=== PATIENT | female | born 1995 | race Caucasian/White ===

== ENCOUNTER 2020-07-21 15:30 | Emergency (ER) | payer BC ==
[2020-07-21] MEDS ORDERED: DIPHENHYDRAMINE 25 MG TAB/CAP ONE (16:05)
[2020-07-21] MEDS ORDERED: METHYLPREDNISOLONE 125 MG INJ ONE (16:05)
[2020-07-21] MEDS ORDERED: FAMOTIDINE 20 MG TAB ONE (16:06)
--- NOTE | 2020-07-21 16:12 | EDPHYS ---
Physician Documentation [facility] Name: Noreen Rodgers Age: 25 yrs Sex: Female : 1995 Arrival Date: 07/21/2020 Time: 15:31 Bed Waiting Private MD: ED Physician Gregory Hernadez HPI: 07/21 15:52 This 25 yrs old Female presents to ER via Ambulatory with complaints of pm1 Allergic Reaction, Facial Swelling. 15:52 The patient presents with itching, swelling to right side of lower lip and right cheek. pm1 Onset: The symptoms/episode began/occurred 2 hour(s) ago. Associated signs and symptoms: Pertinent negatives: chest pain, dysphagia, shortness of breath, sore throat. Possible causes: The patient has no known obvious cause for the symptoms, Ate taco meat from the hospital. At home the patient or guardian has treated the symptoms with nothing. Severity of symptoms: in the emergency department the symptoms are worse. The patient has not experienced similar symptoms in the past. The patient has not recently seen a physician. 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 - Social history:: Smoking status: Patient reports the use of cigarette tobacco products, smokes one-half pack cigarettes per day. ROS: 15:52 Constitutional: Negative for fever, chills, and weight loss. pm1 15:52 Eyes: Negative for injury, pain, redness, and discharge. 15:52 ENT: Positive for lower lip swelling, Negative for ear pain, sore throat. 15:52 Neck: Negative for injury, pain, and swelling, Cardiovascular: Negative for chest pain, pm1 palpitations, and edema, Respiratory: Negative for shortness of breath, cough, wheezing, and pleuritic chest pain, Abdomen/GI: Negative for abdominal pain, nausea, vomiting, diarrhea, and constipation, Back: Negative for injury and pain, MS/Extremity: Negative for injury and deformity. 15:52 Neuro: Negative for headache, weakness, numbness, tingling, and seizure. 15:52 Skin: Positive for rash, of the face. Exam: 15:52 Constitutional: This is a well developed, well nourished patient who is awake, alert, pm1 and in no acute distress. Head/Face: Normocephalic, atraumatic. 15:52 Neck: Trachea midline, no thyromegaly or masses palpated, and no cervical lymphadenopathy. Supple, full range of motion without nuchal rigidity, or vertebral point tenderness. No Meningismus. 15:52 ENT: Mouth: Lips: small lower area of swelling to right side of lower lip, Gums: normal with healthy appearance, Tongue: is normal, drooling, is not appreciated, Posterior pharynx: no acute changes. 15:52 Cardiovascular: Exam negative for acute changes, Rate: normal, Rhythm: regular, Pulses: no pulse deficits are appreciated. 15:52 Respiratory: Exam negative for acute changes, respiratory distress, shortness of breath. 15:52 Skin: Appearance: normal except for affected area, consistent with urticaria, on the right cheek. Vital Signs: 15:37 BP 154 / 103; Pulse 107; Resp 18; Temp 97.9; Pulse Ox 100% ; Weight 158.76 kg; Height 5 ll1 ft. 10 in. (177.80 cm); Pain 7/10; 16:26 Pulse 99; Resp 18; ll1 15:37 Body Mass Index 50.22 (158.76 kg, 177.80 cm) ll1 MDM: 15:52 Data reviewed: vital signs. Data interpreted: Pulse oximetry: on room air is 100 %. pm1 Interpretation: normal. 16:00 Patient medically screened. pm1 16:10 Counseling: I had a detailed discussion with the patient and/or guardian regarding: the pm1 historical points, exam findings, and any diagnostic results supporting the discharge/admit diagnosis, the need for outpatient follow up, an allergy/disaster recovery specialist, to return to the emergency department if symptoms worsen or persist or if there are any questions or concerns that arise at home. Administered Medications: 15:51 Drug: Benadryl (diphenhydrAMINE) 25 mg Route: PO; ll1 16:24 Follow up: Response: No adverse reaction; RASS: Alert and Calm (0) ll1 15:51 Drug: Pepcid (famotidine) 20 mg Route: PO; ll1 16:24 Follow up: Response: No adverse reaction; RASS: Alert and Calm (0) ll1 15:52 Drug: SOLU-Medrol 125 mg Route: IM; Site: right gluteus; ll1 16:24 Follow up: Response: No adverse reaction; RASS: Alert and Calm (0) ll1 Disposition: 16:33 Co-signature as Attending Physician, Gregory Hernadez MD. rn Disposition: 07/21/20 16:11 Discharged to Home. Impression: Urticaria, unspecified. - Condition is Stable. - Discharge Instructions: Allergies, Adult, Hives. - Prescriptions for Benadryl 25 mg Oral Capsule - take 1 capsule by ORAL route every 6 hours As needed; 30 tablet. Pepcid 20 mg Oral Tablet - take 1 tablet by ORAL route every 12 hours for 10 days; 20 tablet. Prednisone 20 mg Oral Tablet - take 3 tablet by ORAL route once daily for 5 days; 15 tablet. - Medication Reconciliation Form, Thank You Letter, Antibiotic Education, Prescription Opioid Use, Work release form form. - Follow up: Emergency Department; When: As needed; Reason: Worsening of condition. Follow up: Private Physician; When: 2 - 3 days; Reason: Recheck today's complaints, Continuance of care, Re-evaluation by your physician. - Problem is new. - Symptoms have improved. Signatures: Gregory Hernadez MD MD rn Marinas, Patrick, COPPING MACHINE OPERATOR COPPING MACHINE OPERATOR pm1 Zahira Moon, RN RN ll1 Corrections: (The following items were deleted from the chart) 16:27 16:11 07/21/2020 16:11 Discharged to Home. Impression: Urticaria, unspecified. ll1 Condition is Stable. Forms are Work release form, Medication Reconciliation Form, Thank You Letter, Antibiotic Education, Prescription Opioid Use. Follow up: Emergency Department; When: As needed; Reason: Worsening of condition. Follow up: Private Physician; When: 2 - 3 days; Reason: Recheck today's complaints, Continuance of care, Re-evaluation by your physician. Problem is new. Symptoms have improved. pm1
--- NOTE | 2020-07-21 16:12 | ER ---
Nurse's Notes [facility] Name: Noreen Rodgers Age: 25 yrs Sex: Female : 1995 Arrival Date: 07/21/2020 Time: 15:31 Bed Waiting Private MD: Diagnosis: Urticaria, unspecified Presentation: 07/21 15:37 Chief complaint: Patient states: Lower lip swelling for 2 hours. Swelling to upper R ll1 eye, redness noted below R eye also. Unknown allergen. No new foods. Coronavirus screen: Client denies travel out of the [place] in the last 14 days. At this time, the client does not indicate any symptoms associated with coronavirus-19. Ebola Screen: Patient denies travel to an Ebola-affected area in the 21 days before illness onset. Onset: The symptoms/episode began/occurred 2 hour(s) ago. Anaphylaxis evaluation, no signs or symptoms of anaphylaxis were noted. Initial Sepsis Screen: Does the patient meet any 2 criteria? HR > 90 bpm. No. Patient's initial sepsis screen is negative. Does the patient have a suspected source of infection? No. Patient's initial sepsis screen is negative. Risk Assessment: Do you want to hurt yourself or someone else? Patient reports no desire to harm self or others. Onset of symptoms was July 21, 2020. 15:37 Method Of Arrival: Ambulatory ll1 15:37 Acuity: MARY 3 ll1 Triage Assessment: 15:40 General: Appears in no apparent distress. Behavior is calm, cooperative, appropriate ll1 for age. Pain: Denies pain. Derm: Skin is pink, warm \T\ dry. Skin temperature is warm Reports swelling/itching to lower lip. R eye eyelid swelling, redness below R eye. No SOB reported. Unknown allergen. INSTRUCTIONAL MATERIALS DIRECTOR: 16:26 LMP N/A - control method ll1 Historical: - Allergies: 15:40 SHELLFISH; ll1 15:40 mesquite/cedar; ll1 15:40 Kiwi (Actinidia Chinensis); ll1 - PMHx: 15:40 Depression; Anxiety; ll1 - PSHx: 15:40 None; ll1 - Immunization history:: Flu vaccine is up to date. - Social history:: Smoking status: Patient reports the use of cigarette tobacco products, smokes one-half pack cigarettes per day. Screenin:26 Abuse screen: Denies threats or abuse. Nutritional screening: No deficits noted. ll1 Tuberculosis screening: No symptoms or risk factors identified. Fall Risk None identified. Total Randolph Fall Scale indicates No Risk (0-24 pts). Assessment: 16:25 Reassessment: No changes from previously documented assessment. Patient and/or family ll1 updated on plan of care and expected duration. Pain level reassessed. Respiratory: Airway is patent Trachea midline Respiratory effort is even, unlabored, Respiratory pattern is regular, Breath sounds are clear bilaterally. Vital Signs: 15:37 BP 154 / 103; Pulse 107; Resp 18; Temp 97.9; Pulse Ox 100% ; Weight 158.76 kg; Height 5 ll1 ft. 10 in. (177.80 cm); Pain 7/10; 16:26 Pulse 99; Resp 18; ll1 15:37 Body Mass Index 50.22 (158.76 kg, 177.80 cm) ll1 ED Course: 15:31 Patient arrived in ED. as 15:39 Triage completed. ll1 15:40 Arm band placed on. ll1 15:46 Miguel Lee NP is PHCP. pm1 15:46 Gregory Hernadez MD is Attending Physician. pm1 16:26 No provider procedures requiring assistance completed. Patient did not have IV access ll1 during this emergency room visit. 16:27 Patient has correct armband on for positive identification. Bed in low position. Call ll1 light in reach. Side rails up X 1. Cardiac monitoring not applicable on this patient. Administered Medications: 15:51 Drug: Benadryl (diphenhydrAMINE) 25 mg Route: PO; ll1 16:24 Follow up: Response: No adverse reaction; RASS: Alert and Calm (0) ll1 15:51 Drug: Pepcid (famotidine) 20 mg Route: PO; ll1 16:24 Follow up: Response: No adverse reaction; RASS: Alert and Calm (0) ll1 15:52 Drug: SOLU-Medrol 125 mg Route: IM; Site: right gluteus; ll1 16:24 Follow up: Response: No adverse reaction; RASS: Alert and Calm (0) ll1 Outcome: 16:11 Discharge ordered by . pm1 16:26 Discharged to home ambulatory. ll1 16:26 Condition: stable 16:26 Discharge instructions given to patient, Instructed on discharge instructions, follow up and referral plans. medication usage, Demonstrated understanding of instructions, follow-up care, medications, Prescriptions given X 3. 16:27 Patient left the ED. ll1 Signatures: Abbie Obrien Patrick, NP PRINTER MACHINE pm1 Zahira Moon, RN RN ll1
== END 2020-07-21 16:27 | disposition home or self-care (01) ==
LOC: ER 15:30
DX: L50.9 Urticaria, unspecified (principal); F17.210 Nicotine dependence, cigarettes, uncomplicated; Z91.013 Allergy to seafood; Z91.018 Allergy to other foods; Z91.048 Other nonmedicinal substance allergy status
CPT/HCPCS: 96372; 99283; J2930